=== PATIENT | female | born 1970 | race Caucasian/White ===

== ENCOUNTER 2017-12-31 01:55 | Inpatient (IN) | payer BC, OTHER ==
[~2017-12-31] VITALS: Ht 162.6 cm; Wt 74.2 kg
[2017-12-31 02:05] VITALS: BP 153/91; PULSE 116; RESP 20; TEMP 98.4; O2SAT 97
[2017-12-31] MEDS ORDERED: MULT-65 PO (02:14)
[2017-12-31] MEDS ORDERED: SODIUM CHLORIDE 0.9% FLUSH 10 ML FLUSH IVF PRN (02:30)
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
[2017-12-31 02:58] LABS: AUTOMATED NEUTROPHIL # 3.3 TH/MM3 (1.8-7.7); BASOPHIL % 0.6 % (0.0-2.0); EOSINOPHIL # 0.1 TH/MM3 (0-0.4); EOSINOPHIL % 1.4 % (0.0-4.0); HEMATOCRIT 39.1 % (35.0-46.0); HEMOGLOBIN 13.5 GM/DL (11.6-15.3); LYMPH % 35.1 % (9.0-44.0); MEAN CELL VOLUME 92.3 FL (80.0-100.0); MEAN CORPUSCULAR HEMOGLOBIN 31.9 PG (27.0-34.0); MEAN CORPUSCULAR HGB CONC 34.5 % (32.0-36.0); MEAN PLATELET VOLUME 7.9 FL (7.0-11.0); MONO % 5.1 % (0.0-8.0); MONOCYTE # 0.3 TH/MM3 (0-0.9); NEUT % 57.8 % (16.0-70.0); PLATELET COUNT 309 TH/MM3 (150-450); RED BLOOD COUNT 4.23 MIL/MM3 (4.00-5.30); RED CELL DISTRIBUTION WIDTH 12.3 % (11.6-17.2); WHITE BLOOD COUNT 5.7 TH/MM3 (4.0-11.0)
[2017-12-31 03:20] LABS: ALBUMIN 4.4 GM/DL (3.4-5.0); ALKALINE PHOSPHATASE 82 U/L (45-117); ALT (GPT) 22 U/L (10-53); AST (GOT) 18 U/L (15-37); BICARBONATE 24.8 MEQ/L (21.0-32.0); BLOOD UREA NITROGEN 11 MG/DL (7-18); CHLORIDE 112 MEQ/L (98-107); CREATININE 0.84 MG/DL (0.50-1.00); GLOMERULAR FILTRATION RATE 72 ML/MIN (>89); GLUCOSE,RANDOM 100 MG/DL (74-106); SODIUM (NA) 145 MEQ/L (136-145); TOTAL BILIRUBIN ADULT 0.2 MG/DL (0.2-1.0)
[2017-12-31 03:23] LABS: ACETAMINOPHEN LESS THAN 2.0 MCG/ML (10.0-30.0)
[2017-12-31 07:45] VITALS: BP 142/78; PULSE 87; RESP 18; TEMP 97.8; O2SAT 98
[2017-12-31] MEDS ORDERED: IBUPROFEN 800 MG TAB PO ONE ×2 (08:15→16:00)
[2017-12-31 11:41] VITALS: BP 117/71; PULSE 98; RESP 18; TEMP 98.7; O2SAT 98
[2017-12-31 18:09] VITALS: BP 135/70; PULSE 80; RESP 16; TEMP 98.7; O2SAT 100
[2018-01-01 02:27] VITALS: BP 132/84; PULSE 105; RESP 17; TEMP 98.3; O2SAT 98
[2018-01-01 06:17] VITALS: BP 125/67; PULSE 103; RESP 18; TEMP 98; O2SAT 98
[2018-01-01 14:15] VITALS: BP 131/65; PULSE 94; RESP 18
[2018-01-01] MEDS ORDERED: diphenhydrAMINE HCL 50 MG CAP PO PRN (19:00)
[2018-01-01 19:05] VITALS: BP 130/77; PULSE 90; RESP 18; TEMP 98.1; O2SAT 99
[2018-01-01 19:10] VITALS: BP 130/77; PULSE 90; RESP 18; TEMP 98
[2018-01-01] MEDS ORDERED: LORazepam 2 MG/ML VIAL IM PRN (19:15)
[2018-01-01] MEDS ORDERED: diphenhydrAMINE HCL 50 MG/ML VIAL IM PRN (19:15)
[2018-01-01] MEDS ORDERED: ALUMINUM/MAGNESIUM/SIMETH 30 ML CUP PO PRN (19:15)
[2018-01-01] MEDS ORDERED: MAGNESIUM HYDROXIDE SUSP 30 ML CUP PO PRN (19:15)
[2018-01-01] MEDS ORDERED: LORazepam 1 MG TAB PO PRN (19:15)
[2018-01-01] MEDS: ACETAMINOPHEN 325 MG TAB PO PRN (22:45)
[2018-01-02] MEDS: ACETAMINOPHEN 325 MG TAB PO PRN (06:16)
[2018-01-02 06:20] VITALS: BP 120/75; PULSE 107; RESP 16; TEMP 97.5; O2SAT 97
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
[2018-01-02 10:02] LABS: CHOLESTEROL 215 MG/DL (120-200)
[2018-01-02 10:05] LABS: CHOLESTEROL/ HDL RATIO 2.02 RATIO; HDL CHOLESTEROL 106.1 MG/DL (40.0-60.0); LDL CHOLESTEROL 94 MG/DL (0-99); TRIGLYCERIDES 74 MG/DL (42-150)
[2018-01-02] MEDS ORDERED: FLUMAZENIL 0.5 MG/5 ML VIAL IV PUSH PRN (11:30)
[2018-01-02] MEDS ORDERED: LORazepam 2 MG/ML VIAL IV PUSH PRN ×4 (11:30)
[2018-01-02] MEDS ORDERED: LORazepam 1 MG TAB PO PRN (11:30)
[2018-01-02] MEDS ORDERED: LORazepam 2 MG TAB PO PRN (11:30)
[2018-01-02 16:38] LABS: HEMOGLOBIN A1C 4.8 % (4.3-6.0)
== END 2018-01-02 13:10 | disposition home or self-care (01) | DRG 882 ==
LOC: NEPD 01:55 → NEDA 01-01 17:14 → H260 01-01 17:48
PROVIDERS: ADMIT Psychiatry & Neurology Psychiatry; ATTEND Psychiatry & Neurology Psychiatry
DX: F43.20 Adjustment disorder, unspecified (principal); F10.929 Alcohol use, unspecified with intoxication, unspecified; Y90.6 Blood alcohol level of 120-199 mg/100 ml; I34.1 Nonrheumatic mitral (valve) prolapse; M54.30 Sciatica, unspecified side
CPT/HCPCS: 80053; 80061; 80307; 83036; 84703; 85025